=== PATIENT | male | born 1985 | race Caucasian/White ===

== ENCOUNTER 2019-06-17 02:22 | Inpatient (IN) | payer MEDICAID, OTHER ==
[~2019-06-17] VITALS: Ht 175.3 cm; Wt 70.6 kg
[~2019-06-17 02:22] MED LIST: QUETIAPINE FUMA25 MG ORAL; REMICADE10 MG IV
--- NOTE | 2019-06-17 02:40 | NUR ---
ED Nurse Note: patient ambulated to ed c/o 12/12 sharp upper abdominal pain x 1 night. denies nvd. patient reports history of crohns. ao4. vss. changed into gown; attached to monitor. all safety measures met.
--- NOTE | 2019-06-17 02:45 | NUR ---
ED Nurse Note: iv access established. blood and urine collected; sent down to lab.
[2019-06-17 03:00] VITALS: BP 124/81
[2019-06-17 03:00] LABS: APPEARANCE,URINE CLEAR; BILIRUBIN, URINE NEGATIVE (NEGATIVE); GLUCOSE, URINE (UA) NEGATIVE (NEGATIVE); KETONES,URINE 4+ (NEGATIVE); LEUKOCYTE ESTERASE ,URINE NEGATIVE (NEGATIVE); NITRITE,URINE NEGATIVE (NEGATIVE); PH,URINE 6 (4.5-8.0); PROTEIN,URINE 2+ (NEGATIVE); UROBILINOGEN,URINE 1 MG/DL (0.0-1.0)
[2019-06-17] MEDS ORDERED: Omnipaque-300 100ml vial INJ PRN (03:00)
[2019-06-17] MEDS ORDERED: Morphine Sulfate 4mg/ml Inj (IV USE ONLY) IVP ONE ×2 (03:00→05:15)
--- NOTE | 2019-06-17 03:01 | Emergency Room Report ---
History of Present Illness General Chief Complaint: Abdominal Pain Source: Patient Present Illness HPI 34-year-old male history of bipolar disorder, Crohn's disease presenting for abdominal pain. He states abdominal pain started last night diffuse nonradiating. Denies any nausea vomiting or diarrhea. Patient was previously on Remicade but has been off medication for about 2 years. His last exacerbation of his Crohn's disease was approximately 2 years ago. He also has a history of right-sided colectomy in 2010. It was completed at [facility]. He denies any fevers cough or shortness of breath. Allergies: Coded Allergies: No Known Allergies (Unverified , 01/15/15) COVID-19 Screening Contact w/high risk pt: No Recent Travel to affected area: No Experienced COVID-19 symptoms?: No Patient History Reviewed Nursing Documentation: PMH: Agreed; PSxH: Agreed Review of Systems All Other Systems: negative except mentioned in HPI Physical Exam Vital Signs Date Time Temp Pulse Resp B/P (MAP) Pulse Ox O2 Delivery O2 Flow Rate FiO2 06/17/19 02:32 98.2 95 20 124/81 (95) 92 Room Air Sp02 EP Interpretation: reviewed, normal General Appearance: well appearing, no apparent distress Head: normocephalic, atraumatic Eyes: bilateral eye PERRL, bilateral eye EOMI ENT: hearing grossly normal, moist mucus membranes Neck: full range of motion, supple Respiratory: lungs clear, normal breath sounds, no rhonchi, no respiratory distress, no retraction, no wheezing Cardiovascular #1: normal peripheral pulses, regular rate, rhythm, no murmur Gastrointestinal: soft, non-distended, no guarding, other - Diffuse abdominal tenderness noted Neurologic: alert, oriented x3, no focal defects Skin: normal color, warm/dry Medical Decision Making Diagnostic Impression: Primary Impression: Small bowel obstruction Additional Impression: Crohn's disease ER Course Differential diagnosis included but not limited to Crohn's flare, small bowel obstruction, gastroenteritis, gastritis, GERD, pancreatitis to name a few. On exam patient in no acute distress, nontoxic-appearing. Did have diffuse abdominal tenderness. Abdominal CT scan ordered. Laboratory studies ordered. Pain control given. CT scan of the abdomen pelvis did demonstrate evidence of small bowel obstruction. Patient had no active vomiting so NG tube was not placed. Surgery consulted, Dr. Soto. Patient admitted to the medical floor under the hospitalist service. Case accepted by Dr Wisdom. Patient was updated on his condition. Additional pain medications given in the ER. Laboratory Tests Test 06/17/19 02:52 White Blood Count 11.5 K/UL (4.8-10.8) H Red Blood Count 5.90 M/UL (4.70-6.10) Hemoglobin 17.0 G/DL (14.2-18.0) Hematocrit 48.4 % (42.0-52.0) Mean Corpuscular Volume 82 FL (80-99) Mean Corpuscular Hemoglobin 28.8 PG (27.0-31.0) Mean Corpuscular Hemoglobin Concent 35.1 G/DL (32.0-36.0) Red Cell Distribution Width 11.0 % (11.6-14.8) L Platelet Count 350 K/UL (150-450) Mean Platelet Volume 5.5 FL (6.5-10.1) L Neutrophils (%) (Auto) 81.7 % (45.0-75.0) H Lymphocytes (%) (Auto) 11.1 % (20.0-45.0) L Monocytes (%) (Auto) 6.5 % (1.0-10.0) Eosinophils (%) (Auto) 0.2 % (0.0-3.0) Basophils (%) (Auto) 0.5 % (0.0-2.0) Urine Color Pale yellow Urine Appearance Clear Urine pH 6 (4.5-8.0) Urine Specific [place] 1.025 (1.005-1.035) Urine Protein 2+ (NEGATIVE) H Urine Glucose (UA) Negative (NEGATIVE) Urine Ketones 4+ (NEGATIVE) H Urine Blood 1+ (NEGATIVE) H Urine Nitrite Negative (NEGATIVE) Urine Bilirubin Negative (NEGATIVE) Urine Urobilinogen 1 MG/DL (0.0-1.0) H Urine Leukocyte Esterase Negative (NEGATIVE) Urine RBC 0-2 /HPF (0 - 0) H Urine WBC 0 /HPF (0 - 0) Urine Squamous Epithelial Cells None /LPF (NONE/OCC) Urine Bacteria None /HPF (NONE) Sodium Level 141 MMOL/L (136-145) Potassium Level 4.1 MMOL/L (3.5-5.1) Chloride Level 103 MMOL/L (98-107) Carbon Dioxide Level 22 MMOL/L (21-32) Blood Urea Nitrogen 20 mg/dL (7-18) H Creatinine 1.2 MG/DL (0.55-1.30) Estimated Glomerular Filtration Rate > 60 mL/min (>60) Glucose Level 118 MG/DL (74-106) H Calcium Level 9.2 MG/DL (8.5-10.1) Total Bilirubin 0.8 MG/DL (0.2-1.0) Aspartate Amino Transferase (AST) 23 U/L (15-37) Alanine Aminotransferase (ALT) 40 U/L (12-78) Alkaline Phosphatase 115 U/L (46-116) Total Protein 8.1 G/DL (6.4-8.2) Albumin 4.8 G/DL (3.4-5.0) Globulin 3.3 g/dL Albumin/Globulin Ratio 1.5 (1.0-2.7) Lipase 140 U/L (73-393) CT/MRI/US Diagnostic Results CT/MRI/US Diagnostic Results : Imaging Test Ordered: CT scan abdomen and pelvis Impression MPRESSION: 1. Findings suggestive of small bowel obstruction with evidence of partial resection of the right colon. 2. Unremarkable abdominal viscera. Last Vital Signs Date Time Temp Pulse Resp B/P (MAP) Pulse Ox O2 Delivery O2 Flow Rate FiO2 06/17/19 02:32 98.2 95 20 124/81 (95) 92 Room Air Status: unchanged Disposition: ADMITTED INPATIENT Condition: Serious Referrals: NON PHYSICIAN (PCP) Kevon Snyder M.D. Jun 17, 2019 03:01
[2019-06-17 03:04] LABS: BASOPHILS % (AUTO) 0.5 % (0.0-2.0); COLOR,URINE PALE YELLOW; EOSINOPHILS % (AUTO) 0.2 % (0.0-3.0); HEMATOCRIT 48.4 % (42.0-52.0); LYMPHOCYTES % (AUTO) 11.1 % (20.0-45.0); MEAN CORPUSCULAR VOLUME 82 FL (80-99); MONOCYTES % (AUTO) 6.5 % (1.0-10.0); NEUTROPHILS % (AUTO) 81.7 % (45.0-75.0); PLATELET COUNT 350 K/UL (150-450); WHITE BLOOD COUNT 11.5 K/UL (4.8-10.8)
[2019-06-17 03:14] LABS: ALANINE AMINOTRANSFERASE 40 U/L (12-78); ALBUMIN 4.8 G/DL (3.4-5.0); ALBUMIN/GLOBULIN RATIO 1.5 (1.0-2.7); ALKALINE PHOSPHATASE 115 U/L (46-116); ASPARTATE AMINO TRANSFERASE 23 U/L (15-37); BILIRUBIN,TOTAL 0.8 MG/DL (0.2-1.0); BLOOD UREA NITROGEN 20 mg/dL (7-18); CALCIUM 9.2 MG/DL (8.5-10.1); CARBON DIOXIDE 22 MMOL/L (21-32); CHLORIDE 103 MMOL/L (98-107); CREATININE 1.2 MG/DL (0.55-1.30); POTASSIUM 4.1 MMOL/L (3.5-5.1); SODIUM 141 MMOL/L (136-145)
[2019-06-17 05:00] VITALS: BP 133/79
--- NOTE | 2019-06-17 05:00 | NUR ---
ED Nurse Note: mrsa swab collected; sent down to lab. patient refused vre cre swab.
--- NOTE | 2019-06-17 05:04 | Diagnostic Imaging Report ---
EXAM: CT Abdomen and Pelvis With Intravenous Contrast CLINICAL HISTORY: ABD PAIN TECHNIQUE: Axial computed tomography images of the abdomen and pelvis with intravenous contrast. CTDI is 3.9 mGy and DLP is 196.9 mGy-cm. One or more of the following dose reduction techniques were used: automated exposure control, adjustment of the mA and/or kV according to patient size, use of iterative reconstruction technique. COMPARISON: None. FINDINGS: Lung bases: Unremarkable. No mass. No consolidation. ABDOMEN: Liver: Unremarkable. No mass. Gallbladder and bile ducts: Unremarkable. No calcified stones. No ductal dilation. Pancreas: Unremarkable. No mass. No ductal dilation. Spleen: Unremarkable. No splenomegaly. Adrenals: Unremarkable. No mass. Kidneys and ureters: Unremarkable. No solid mass. No hydronephrosis. Stomach and bowel: The stomach is distended otherwise unremarkable. No hiatal hernia. Postoperative changes with suture along the ascending colon suggestive of partial right-sided colonic resection. Multiple loops of small bowel are dilated up to 4.1 cm with foamy debris in the distal aspect of the small bowel suggestive of small bowel obstruction. Zone of transition is indeterminate and likely at the level of the distal ileum or at the level of the suture site. The descending colon is decompressed. Mild fullness of the wall throughout the colon including the transverse portion and descending colon with minimal surrounding stranding does not exclude colitis. PELVIS: Appendix: No findings to suggest acute appendicitis. Bladder: Unremarkable. No mass. Reproductive: Unremarkable as visualized. ABDOMEN and PELVIS: Intraperitoneal space: Unremarkable. No free air. No significant fluid collection. Bones/joints: Mild degenerative disease of the spine. No acute fracture. No dislocation. Soft tissues: Unremarkable. Vasculature: Unremarkable. No abdominal aortic aneurysm. Lymph nodes: Unremarkable. No enlarged lymph nodes. IMPRESSION: 1. Findings suggestive of small bowel obstruction with evidence of partial resection of the right colon. 2. Unremarkable abdominal viscera.
[2019-06-17] MEDS ORDERED: Morphine Sulfate 4mg/ml Inj (IV USE ONLY) ONE (05:10)
--- NOTE | 2019-06-17 05:27 | NUR ---
Patient's aunt [phone]
--- NOTE | 2019-06-17 05:30 | NUR ---
TRANSFER TO FLOOR: Patient transferred to as ordered, per itz wagner. Report given to karine edmonds. patient stable for transport. patient transferred to unit via wheelchair with [employer]. pt sent with all belongings and admission packet. endorsed pt pain reassessment.
--- NOTE | 2019-06-17 05:35 | NUR ---
NURSE NOTES: Received, report from ER Nurse Chio will wait for pt arrival to the unit
--- NOTE | 2019-06-17 05:35 | NUR ---
NURSE NOTES: pt arrived to the unit via wheel chair escorted by ER staff. Pt transferred to bed with assist, pt is a/ox4, breaths regular unlabored at RA, c/o pain of 3/10 abd pain, pt has a Rt AC 18 G with no i.v fluids, skin otherwise intact with tattoos. oriented pt to the room, bed in low locked position, call light with in reach
--- NOTE | 2019-06-17 07:30 | NUR ---
NURSE NOTES: left message to MD for admission orders
--- NOTE | 2019-06-17 07:45 | NUR ---
HAND-OFF: Report given to qasim Degroot
[2019-06-17 08:20] VITALS: BP 121/72
[2019-06-17] MEDS: Piperacillin/Tazobactam 3.375 GM in NS 110 ML IVPB SCH ×2 (10:59→18:15)
[2019-06-17] MEDS: Morphine Sulfate 2mg/ml Inj(IV/IM USE ONLY) IVP PRN ×2 (11:08→17:01)
--- NOTE | 2019-06-17 11:32 | General Progress Note ---
Assessment/Plan Problem List: (1) Crohn's disease ICD Codes: K50.90 - Crohn's disease, unspecified, without complications SNOMED: 79571789 (2) Small bowel obstruction ICD Codes: K56.609 - Unspecified intestinal obstruction, unspecified as to partial versus complete obstruction SNOMED: 940157978 Assessment/Plan: h/o colon resection off meds for CD NPO IVF abx surg consult ESR/CRP KUB in am Subjective ROS Limited/Unobtainable: Yes Allergies: Coded Allergies: No Known Allergies (Unverified , 01/15/15) Objective Last 24 Hour Vital Signs Date Time Temp Pulse Resp B/P (MAP) Pulse Ox O2 Delivery O2 Flow Rate FiO2 06/17/19 08:20 98.3 87 18 121/72 (88) 96 06/17/19 06:39 Room Air 06/17/19 05:30 98.2 89 18 133/79 95 Room Air 06/17/19 05:00 98.2 89 18 133/79 95 Room Air 06/17/19 03:37 98.2 06/17/19 03:00 98.2 95 20 124/81 92 Room Air 06/17/19 03:00 95 20 Room Air 06/17/19 02:32 98.2 95 20 124/81 (95) 92 Room Air Laboratory Tests 06/17/19 02:52: White Blood Count 11.5H, Red Blood Count 5.90, Hemoglobin 17.0, Hematocrit 48.4 , Mean Corpuscular Volume 82, Mean Corpuscular Hemoglobin 28.8, Mean Corpuscular Hemoglobin Concent 35.1, Red Cell Distribution Width 11.0L, Platelet Count 350, Mean Platelet Volume 5.5L, Neutrophils (%) (Auto) 81.7H, Lymphocytes (%) (Auto) 11.1L, Monocytes (%) (Auto) 6.5, Eosinophils (%) (Auto) 0.2, Basophils (%) (Auto) 0.5, Urine Color Pale yellow, Urine Appearance Clear, Urine pH 6, Urine Specific [place] 1.025, Urine Protein 2+H, Urine Glucose (UA) Negative, Urine Ketones 4+H, Urine Blood 1+H, Urine Nitrite Negative, Urine Bilirubin Negative, Urine Urobilinogen 1H, Urine Leukocyte Esterase Negative, Urine RBC 0-2H, Urine WBC 0, Urine Squamous Epithelial Cells None, Urine Bacteria None, Sodium Level 141, Potassium Level 4.1, Chloride Level 103, Carbon Dioxide Level 22, Blood Urea Nitrogen 20H, Creatinine 1.2, Estimat Glomerular Filtration Rate > 60, Glucose Level 118H, Calcium Level 9.2, Total Bilirubin 0.8, Aspartate Amino Transf (AST/SGOT) 23, Alanine Aminotransferase ( ALT/SGPT) 40, Alkaline Phosphatase 115, Total Protein 8.1, Albumin 4.8, Globulin 3.3, Albumin/Globulin Ratio 1.5, Lipase 140 Height (Feet): 5 Height (Inches): 9.00 Weight (Pounds): 145 General Appearance: alert EENT: normal ENT inspection Neck: supple Cardiovascular: normal rate Respiratory/Chest: lungs clear Abdomen: hypoactive bowel sounds, distended Extremities: non-tender Enoc Marsh MD Jun 17, 2019 11:32
[2019-06-17 12:00] VITALS: BP 111/57
--- NOTE | 2019-06-17 13:47 | Consultation ---
History of Present Illness General Date patient seen: Jun 17, 2019 Reason for Hospitalization: Abdominal Pain Present Illness HPI 34-year-old male with history of bipolar disorder, Crohn's disease diagnosed in 2010 and presently untreated presented to [facility] for abdominal pain. He states abdominal pain started 1 day ago as diffuse nonradiating abd pain. Denies any nausea vomiting or diarrhea. Patient was previously on Remicade but has been off medication for about 2 years. His last exacerbation of his Crohn's disease was approximately 2 years ago. He also has a history of right-sided colectomy in 2010 at [facility]. He denies any fevers cough or shortness of breath. last flatus and BM yesterday. hungry. no pain currently. CT with Sbo on admission. surgery called to evaluate. Allergies: Coded Allergies: No Known Allergies (Unverified , 01/15/15) COVID-19 Screening Contact w/high risk pt: No Recent Travel to affected area: No Experienced COVID-19 symptoms?: No Medication History Scheduled Infliximab (Remicade), 0 IV ONCE, (Reported) Quetiapine Fumarate* (Seroquel*), 25 MG ORAL DAILY, (Reported) Patient History History Provided By: Patient, Medical Record, PMD Healthcare decision maker Resuscitation status Full Code Advanced Directive on File No Past Medical/Surgical History Past Medical/Surgical History: (1) Major depression (2) Drug overdose (3) Suicidal intent (4) Crohn's disease (5) Small bowel obstruction Review of Systems Review of Symptoms General ROS: no weight loss or fever Psychological ROS: no depression or mood changes, no memory loss Ophthalmic ROS: no visual changes or eye irritation ENT ROS: no nasal congestion, hearing loss, dizziness Allergy and Immunology ROS: no allergic symptoms or urticaria Hematological and Lymphatic ROS: no swollen glands, unusual bleeding or bruising Endocrine ROS: no polyuria, polydipsia, weight changes, temperature intolerance Respiratory ROS: no cough, shortness of breath, or wheezing Cardiovascular ROS: no chest pain or dyspnea on exertion Gastrointestinal ROS: abdominal pain, no bright red blood in stool. Musculoskeletal ROS: no myalgias or arthralgias Neurological ROS: no TIA or stroke symptoms Dermatological ROS: no new or changing skin lesions, rashes or pruritis Physical Exam Physical Exam General appearance: alert, cooperative, no distress, appears stated age Head: Normocephalic, without obvious abnormality, atraumatic Eyes: conjunctivae/corneas clear. PERRL, EOM's intact. Fundi benign Throat: Lips, mucosa, and tongue normal. Teeth and gums normal Neck: supple, symmetrical, trachea midline, no adenopathy, thyroid: not enlarged, symmetric, no tenderness/mass/nodules, no carotid bruit and no JVD Lungs: clear to auscultation bilaterally Heart: regular rate and rhythm, S1, S2 normal, no murmur, click, rub or gallop Abdomen: soft, non-tender. Bowel sounds decreased mild distention. No masses, no organomegaly Extremities: extremities normal, atraumatic, no cyanosis or edema Pulses: 2+ and symmetric Skin: Skin color, texture, turgor normal. No rashes or lesions Neurologic: Grossly normal Last 24 Hour Vital Signs Date Time Temp Pulse Resp B/P (MAP) Pulse Ox O2 Delivery O2 Flow Rate FiO2 06/17/19 08:20 98.3 87 18 121/72 (88) 96 06/17/19 06:39 Room Air 06/17/19 05:30 98.2 89 18 133/79 95 Room Air 06/17/19 05:00 98.2 89 18 133/79 95 Room Air 06/17/19 03:37 98.2 06/17/19 03:00 98.2 95 20 124/81 92 Room Air 06/17/19 03:00 95 20 Room Air 06/17/19 02:32 98.2 95 20 124/81 (95) 92 Room Air Laboratory Tests Test 06/17/19 02:52 White Blood Count 11.5 K/UL (4.8-10.8) H Red Blood Count 5.90 M/UL (4.70-6.10) Hemoglobin 17.0 G/DL (14.2-18.0) Hematocrit 48.4 % (42.0-52.0) Mean Corpuscular Volume 82 FL (80-99) Mean Corpuscular Hemoglobin 28.8 PG (27.0-31.0) Mean Corpuscular Hemoglobin Concent 35.1 G/DL (32.0-36.0) Red Cell Distribution Width 11.0 % (11.6-14.8) L Platelet Count 350 K/UL (150-450) Mean Platelet Volume 5.5 FL (6.5-10.1) L Neutrophils (%) (Auto) 81.7 % (45.0-75.0) H Lymphocytes (%) (Auto) 11.1 % (20.0-45.0) L Monocytes (%) (Auto) 6.5 % (1.0-10.0) Eosinophils (%) (Auto) 0.2 % (0.0-3.0) Basophils (%) (Auto) 0.5 % (0.0-2.0) Urine Color Pale yellow Urine Appearance Clear Urine pH 6 (4.5-8.0) Urine Specific [place] 1.025 (1.005-1.035) Urine Protein 2+ (NEGATIVE) H Urine Glucose (UA) Negative (NEGATIVE) Urine Ketones 4+ (NEGATIVE) H Urine Blood 1+ (NEGATIVE) H Urine Nitrite Negative (NEGATIVE) Urine Bilirubin Negative (NEGATIVE) Urine Urobilinogen 1 MG/DL (0.0-1.0) H Urine Leukocyte Esterase Negative (NEGATIVE) Urine RBC 0-2 /HPF (0 - 0) H Urine WBC 0 /HPF (0 - 0) Urine Squamous Epithelial Cells None /LPF (NONE/OCC) Urine Bacteria None /HPF (NONE) Sodium Level 141 MMOL/L (136-145) Potassium Level 4.1 MMOL/L (3.5-5.1) Chloride Level 103 MMOL/L (98-107) Carbon Dioxide Level 22 MMOL/L (21-32) Blood Urea Nitrogen 20 mg/dL (7-18) H Creatinine 1.2 MG/DL (0.55-1.30) Estimat Glomerular Filtration Rate > 60 mL/min (>60) Glucose Level 118 MG/DL (74-106) H Calcium Level 9.2 MG/DL (8.5-10.1) Total Bilirubin 0.8 MG/DL (0.2-1.0) Aspartate Amino Transf (AST/SGOT) 23 U/L (15-37) Alanine Aminotransferase (ALT/SGPT) 40 U/L (12-78) Alkaline Phosphatase 115 U/L (46-116) Total Protein 8.1 G/DL (6.4-8.2) Albumin 4.8 G/DL (3.4-5.0) Globulin 3.3 g/dL Albumin/Globulin Ratio 1.5 (1.0-2.7) Lipase 140 U/L (73-393) Height (Feet): 5 Height (Inches): 9.00 Weight (Pounds): 145 Medications Current Medications Medications (Trade) Dose Ordered Sig/Jim Route PRN Reason Start Time Stop Time Status Last Admin Dose Admin Iohexol (OMNIPAQUE-300 100ml) 100 ml NOW PRN INJ Radiology Procedure 06/17/19 03:00 06/19/19 02:52 Morphine Sulfate (Morphine Sulfate) 2 mg Q4H PRN IVP mod to severe pain 06/17/19 09:45 06/24/19 09:44 06/17/19 11:08 Ondansetron HCl (Zofran) 4 mg Q6H PRN IVP Nausea & Vomiting 06/17/19 09:45 07/17/19 09:44 Piperacillin Sod/ Tazobactam Sod 3.375 gm/Sodium Chloride 110 ml @ 27.5 mls/hr Q8H IVPB 06/17/19 11:00 06/24/19 10:59 06/17/19 10:59 Sodium Chloride 1,000 ml @ 125 mls/hr Q8H IV 06/17/19 10:00 07/17/19 09:59 06/17/19 10:14 Assessment/Plan Problem List: (1) Crohn's disease ICD Codes: K50.90 - Crohn's disease, unspecified, without complications SNOMED: 28499200 (2) Small bowel obstruction Assessment & Plan: Liver: Unremarkable. No mass. Gallbladder and bile ducts: Unremarkable. No calcified stones. No ductal dilation. Pancreas: Unremarkable. No mass. No ductal dilation. Spleen: Unremarkable. No splenomegaly. Adrenals: Unremarkable. No mass. Kidneys and ureters: Unremarkable. No solid mass. No hydronephrosis. Stomach and bowel: The stomach is distended otherwise unremarkable. No hiatal hernia. Postoperative changes with suture along the ascending colon suggestive of partial right-sided colonic resection. Multiple loops of small bowel are dilated up to 4.1 cm with foamy debris in the distal aspect of the small bowel suggestive of small bowel obstruction. Zone of transition is indeterminate and likely at the level of the distal ileum or at the level of the suture site. The descending colon is decompressed. Mild fullness of the wall throughout the colon including the transverse portion and descending colon with minimal surrounding stranding does not exclude colitis. PELVIS: Appendix: No findings to suggest acute appendicitis. Bladder: Unremarkable. No mass. Reproductive: Unremarkable as visualized. ABDOMEN and PELVIS: Intraperitoneal space: Unremarkable. No free air. No significant fluid collection. Bones/joints: Mild degenerative disease of the spine. No acute fracture. No dislocation. Soft tissues: Unremarkable. Vasculature: Unremarkable. No abdominal aortic aneurysm. Lymph nodes: Unremarkable. No enlarged lymph nodes. IMPRESSION: 1. Findings suggestive of small bowel obstruction with evidence of partial resection of the right colon. 2. Unremarkable abdominal viscera. improved since admission npo iv fluids am kub will follow clinically ICD Codes: K56.609 - Unspecified intestinal obstruction, unspecified as to partial versus complete obstruction SNOMED: 539252772 (3) Major depression ICD Codes: F32.9 - Major depressive disorder, single episode, unspecified SNOMED: 624335796 (4) Drug overdose ICD Codes: T50.901A - Poisoning by unspecified drugs, medicaments and biological substances, accidental (unintentional), initial encounter SNOMED: 52352173 (5) Suicidal intent ICD Codes: R45.851 - Suicidal ideations SNOMED: 333946283 aYn Soto Jun 17, 2019 13:47
[2019-06-17 16:00] VITALS: BP 122/68
[2019-06-17] MEDS ORDERED: Hydromorphone 0.5mg/0.5ml inj IM PRN (18:32)
[2019-06-17] MEDS: Hydromorphone 0.5mg/0.5ml inj IVP PRN ×2 (18:45→22:33)
--- NOTE | 2019-06-17 18:50 | NUR ---
NURSE NOTES: Called and received order from dr Soto for dilaudid 0.5mg iv Q4 PRN due to severe pain after morphine 2mg iv
--- NOTE | 2019-06-17 19:32 | NUR ---
NURSE NOTES: Report received from JONI Degroot. Patient is in stable condition.
--- NOTE | 2019-06-17 19:46 | NUR ---
HAND-OFF: Report given to JONI Turner.
[2019-06-17 20:00] VITALS: BP 120/77
--- NOTE | 2019-06-17 20:00 | NUR ---
NURSE NOTES: Patient complaining of 9/10 abdominal pain. Last dose of Dilaudid given at 1845. Patient says it helped "a little bit", denies discomfort, nausea and vomiting, but complains of discomfort and pain. Dr. Stoo aware. Will monitor pt's pain and medicate as needed.
--- NOTE | 2019-06-17 21:30 | NUR ---
NURSE NOTES: Explained to patient in regards to possible surgery tomorrow AM if pain unrelieved. Offered ice packs. Patient is getting upset.
--- NOTE | 2019-06-17 22:26 | Diagnostic Imaging Report ---
EXAM: XR Abdomen, 1 View CLINICAL HISTORY: ABD PAIN TECHNIQUE: Frontal supine view of the abdomen/pelvis. COMPARISON: No relevant prior studies available. FINDINGS: Mild to moderately gaseous distended small bowel loops centrally. Findings consistent with small bowel obstruction. Negative for pneumatosis.
--- NOTE | 2019-06-17 22:30 | NUR ---
NURSE NOTES: spoke with Dr. Soto for unrelieved abdominal pain. Ordered stat orders: BMP, CBC , Lactic acid and KUB.
[2019-06-17 22:57] LABS: BASOPHILS % (AUTO) 0.3 % (0.0-2.0); EOSINOPHILS % (AUTO) 0.2 % (0.0-3.0); HEMATOCRIT 46.3 % (42.0-52.0); HEMOGLOBIN 15.2 G/DL (14.2-18.0); LYMPHOCYTES % (AUTO) 8.6 % (20.0-45.0); MEAN CORPUSCULAR VOLUME 87 FL (80-99); MONOCYTES % (AUTO) 6.5 % (1.0-10.0); NEUTROPHILS % (AUTO) 84.5 % (45.0-75.0); PLATELET COUNT 317 K/UL (150-450); RED BLOOD COUNT 5.33 M/UL (4.70-6.10); RED CELL DISTRIBUTION WIDTH 12.7 % (11.6-14.8); WHITE BLOOD COUNT 12.7 K/UL (4.8-10.8)
[2019-06-17 23:08] LABS: ANION GAP 16 mmol/L (5-15); BLOOD UREA NITROGEN 16 mg/dL (7-18); CALCIUM 8.9 MG/DL (8.5-10.1); CARBON DIOXIDE 20 MMOL/L (21-32); CHLORIDE 106 MMOL/L (98-107); CREATININE 1.1 MG/DL (0.55-1.30); POTASSIUM 3.9 MMOL/L (3.5-5.1); SODIUM 142 MMOL/L (136-145)
[2019-06-18] VITALS: BP 121/85
--- NOTE | 2019-06-18 01:14 | History and Physical Report ---
DATE OF ADMISSION: 06/17/2019 REASON FOR REQUEST: Small bowel obstruction in the setting of Crohn disease. HISTORY OF PRESENT ILLNESS: This is a 34-year-old male. He has a history of Crohn disease diagnosed about 10 years ago, treated for some time with Remicade apparently and an oral pill. Patient did well for quite some time although he had an episode of bowel obstruction about 3 to 5 years ago that required a short hospital stay. Due to feeling well, he self-discontinued his medication therapy several years ago. He has fared well up until the last day or two. When he developed abdominal pain and shortness of breath. Patient has had a prior right-sided hemicolectomy at the time of his Crohn's diagnosis and it was done at [facility] in [place]. The patient has not had any nausea or vomiting, but has had abdominal discomfort and has been passing gas. PAST MEDICAL HISTORY: Notable for depression, history of drug overdose, history of suicide attempt, Crohn disease, right hemicolectomy. MEDICATIONS: Reviewed. ALLERGIES: None. SOCIAL HISTORY: Nonsmoker. Denies alcohol or substance abuse. FAMILY HISTORY: Noncontributory. REVIEW OF SYSTEMS: A 10-point review of systems performed. All systems negative other than noted above. PHYSICAL EXAMINATION: VITAL SIGNS: Blood pressure 121/72, heart rate 87, respirations 18, afebrile. HEENT: Conjunctivae pink. Oropharynx clear. NECK: Supple. LUNGS: Clear. CARDIAC: Regular. Normal S1, S2. No murmur. ABDOMEN: Soft, nontender. No guarding or rebound. EXTREMITIES: No edema. NEUROLOGIC: Nonfocal. LABORATORY DATA: White count 11.5, hemoglobin 17. Urinalysis with no active sediment and chemistry panel within normal limits. X-ray reveals partial small bowel obstruction. IMPRESSION: Partial small bowel obstruction in the setting of Crohn disease with prior right hemicolectomy. PLAN: 1. Bowel rest. 2. IV fluid hydration. 3. Analgesics. 4. GI and Surgical consultations. 5. Follow up imaging studies of the abdomen. 6. Empiric antimicrobials. Eduardo Wisdom M.D. : DAI JOB#: [id number] CC:
--- NOTE | 2019-06-18 01:39 | NUR ---
NURSE NOTES: Spoke with Dr. Wisdom regarding patient unrelieved abdominal pain of 11/12. called back and ordered to continue same medications.
[2019-06-18] MEDS: HYDROmorphone 1mg/ml Carpuject IVP PRN ×4 (02:34→20:11)
[2019-06-18] MEDS: Piperacillin/Tazobactam 3.375 GM in NS 110 ML IVPB SCH ×3 (02:34→18:19)
--- NOTE | 2019-06-18 03:30 | NUR ---
NURSE NOTES: Patient verbalizes no pain after giving new order of Dilaudid 1 mg IVP.
[2019-06-18 04:00] VITALS: BP 99/53
[2019-06-18 06:19] LABS: BASOPHILS % (AUTO) 0.4 % (0.0-2.0); EOSINOPHILS % (AUTO) 0.1 % (0.0-3.0); HEMATOCRIT 40.2 % (42.0-52.0); HEMOGLOBIN 14.1 G/DL (14.2-18.0); MEAN CORPUSCULAR VOLUME 83 FL (80-99); MONOCYTES % (AUTO) 13.2 % (1.0-10.0); NEUTROPHILS % (AUTO) 71.3 % (45.0-75.0); PLATELET COUNT 268 K/UL (150-450); RED BLOOD COUNT 4.82 M/UL (4.70-6.10); RED CELL DISTRIBUTION WIDTH 11.3 % (11.6-14.8); WHITE BLOOD COUNT 7.6 K/UL (4.8-10.8)
[2019-06-18 07:00] LABS: ALANINE AMINOTRANSFERASE 25 U/L (12-78); ALBUMIN 3.5 G/DL (3.4-5.0); ALBUMIN/GLOBULIN RATIO 1.3 (1.0-2.7); ALKALINE PHOSPHATASE 82 U/L (46-116); ANION GAP 14 mmol/L (5-15); ASPARTATE AMINO TRANSFERASE 17 U/L (15-37); BILIRUBIN,TOTAL 0.8 MG/DL (0.2-1.0); BLOOD UREA NITROGEN 15 mg/dL (7-18); CALCIUM 8.4 MG/DL (8.5-10.1); CARBON DIOXIDE 21 MMOL/L (21-32); CHLORIDE 108 MMOL/L (98-107); CREATININE 0.9 MG/DL (0.55-1.30); POTASSIUM 3.9 MMOL/L (3.5-5.1); SODIUM 143 MMOL/L (136-145)
--- NOTE | 2019-06-18 07:29 | NUR ---
HAND-OFF: Report given to JONI Irving. Patient is asleep and in stable condition .
--- NOTE | 2019-06-18 07:30 | NUR ---
NURSE NOTES: Patient is asleep. Stable. No visible signs of distress noted. All safety measures provided. Patient is in bed in locked and lowest position with call light within reach. Will continue to monitor.
--- NOTE | 2019-06-18 09:00 | General Progress Note ---
Assessment/Plan Problem List: (1) Crohn's disease ICD Codes: K50.90 - Crohn's disease, unspecified, without complications SNOMED: 88626425 (2) Small bowel obstruction ICD Codes: K56.609 - Unspecified intestinal obstruction, unspecified as to partial versus complete obstruction SNOMED: 471716683 Assessment/Plan: h/o colon resection off meds for CD NPO IVF abx surg consult, appreciated ESR/CRP KUB reviewed fu SBFT Subjective Allergies: Coded Allergies: No Known Allergies (Unverified , 01/15/15) Objective Last 24 Hour Vital Signs Date Time Temp Pulse Resp B/P (MAP) Pulse Ox O2 Delivery O2 Flow Rate FiO2 06/18/19 08:03 Room Air 06/18/19 04:00 98.7 16 99/53 (68) 95 06/18/19 00:00 98.1 90 16 121/85 (97) 98 06/17/19 23:03 98.1 06/17/19 21:00 Room Air 06/17/19 20:00 98.1 88 16 120/77 (91) 97 06/17/19 16:00 98.2 84 18 122/68 (86) 98 06/17/19 12:00 98.3 87 18 111/57 (75) 97 06/17/19 09:00 Room Air Intake and Output 06/17/19 06/18/19 19:00 07:00 Intake Total 125 ml 875 ml Output Total 1950 ml Balance 125 ml -1075 ml Intake IV Total 125 ml 875 ml Output Urine Total 1950 ml # Voids 6 Laboratory Tests 06/17/19 22:30: White Blood Count 12.7H, Red Blood Count 5.33, Hemoglobin 15.2, Hematocrit 46.3 , Mean Corpuscular Volume 87, Mean Corpuscular Hemoglobin 28.5, Mean Corpuscular Hemoglobin Concent 32.8, Red Cell Distribution Width 12.7, Platelet Count 317, Mean Platelet Volume 6.7, Neutrophils (%) (Auto) 84.5H, Lymphocytes ( %) (Auto) 8.6L, Monocytes (%) (Auto) 6.5, Eosinophils (%) (Auto) 0.2, Basophils (%) (Auto) 0.3, Sodium Level 142, Potassium Level 3.9, Chloride Level 106, Carbon Dioxide Level 20L, Anion Gap 16H, Blood Urea Nitrogen 16, Creatinine 1.1 , Estimat Glomerular Filtration Rate > 60, Glucose Level 102, Lactic Acid Level 0.80, Calcium Level 8.9 06/18/19 05:00: White Blood Count 7.6, Red Blood Count 4.82, Hemoglobin 14.1L, Hematocrit 40.2L , Mean Corpuscular Volume 83, Mean Corpuscular Hemoglobin 29.2, Mean Corpuscular Hemoglobin Concent 35.0, Red Cell Distribution Width 11.3L, Platelet Count 268, Mean Platelet Volume 5.6L, Neutrophils (%) (Auto) 71.3, Lymphocytes (%) (Auto) 15.0L, Monocytes (%) (Auto) 13.2H, Eosinophils (%) (Auto ) 0.1, Basophils (%) (Auto) 0.4, Sodium Level 143, Potassium Level 3.9, Chloride Level 108H, Carbon Dioxide Level 21, Anion Gap 14, Blood Urea Nitrogen 15, Creatinine 0.9, Estimat Glomerular Filtration Rate > 60, Glucose Level 91, Calcium Level 8.4L, Erythrocyte Sedimentation Rate [Pending], Magnesium Level 2.0, Total Bilirubin 0.8, Aspartate Amino Transf (AST/SGOT) 17, Alanine Aminotransferase (ALT/SGPT) 25, Alkaline Phosphatase 82, C-Reactive Protein, Quantitative 3.4H, Total Protein 6.2L, Albumin 3.5, Globulin 2.7, Albumin/ Globulin Ratio 1.3 Height (Feet): 5 Height (Inches): 9.00 Weight (Pounds): 155 General Appearance: alert EENT: normal ENT inspection Neck: supple Cardiovascular: normal rate Respiratory/Chest: decreased breath sounds Abdomen: normal bowel sounds, non tender, soft Extremities: non-tender Enoc Marsh MD Jun 18, 2019 09:00
--- NOTE | 2019-06-18 09:33 | NUR ---
CASE MANAGEMENT: INITIAL REVIEW 34YR OLD FROM HOME CC: ABDOMINAL PAIN 12/12 SI:SMALL BOWEL OBSTRUCTION PMH: CROHN'S DISEASE; RIGHT SIDED COLECTOMY 98.2 95 20 124/81 92% ON RA WBC 12.7 BUN 20 BG 118 ANION GAP 16 CO2-20 IS: IV MORPHINE SULFATE X2 CT ABD/PEL- SMALL BOWEL OBSTRUCTION WITH EVIDENCE OF PARTIAL RESECTION OF THE RIGHT COLON ABD [id number] consistent with small bowel obstruction. Negative for pneumatosis. \:3E MED SURG UNIT DCP: HOME WHEN STABLE PLAN: NPO IV ABX IV HYDRATE SURGERY CONSULT ERCP/CRP KUB CASE MANAGEMENT: REVIEW 06/18/19 SI:SMALL BOWEL OBSTRUCTION . CROHN'S DISEASE 98.7 90 16 121/85 98% ON RA CA+ 8.4 CREC PRO-3.4 IS: IV ZOSYN Q8HR IV NS @125ML/HR IV DILAUDID Q4HR/PRN IV ZOFRAN Q6HR/PRN \:3E MED SURG UNIT DCP: HOME WHEN STABLE PLAN: CONT NPO CONT IV ABX SURGERY CONSULT ERCP/CRP KUB THIS AM
--- NOTE | 2019-06-18 09:55 | Surgery Progress Note ---
Surgery Progress Note Subjective Additional Comments overnight was asking for pain meds and increased dosage despite minimal change in clinical afebrile HD stable labs improved kub noted this morning states feels much better no n/v/f/c no flatus or bm yet Objective Last 24 Hour Vital Signs Date Time Temp Pulse Resp B/P (MAP) Pulse Ox O2 Delivery O2 Flow Rate FiO2 06/18/19 08:03 Room Air 06/18/19 04:00 98.7 16 99/53 (68) 95 06/18/19 00:00 98.1 90 16 121/85 (97) 98 06/17/19 23:03 98.1 06/17/19 21:00 Room Air 06/17/19 20:00 98.1 88 16 120/77 (91) 97 06/17/19 16:00 98.2 84 18 122/68 (86) 98 06/17/19 12:00 98.3 87 18 111/57 (75) 97 I&O Intake and Output 06/17/19 06/18/19 19:00 07:00 Intake Total 125 ml 875 ml Output Total 1950 ml Balance 125 ml -1075 ml Intake IV Total 125 ml 875 ml Output Urine Total 1950 ml # Voids 6 Cardiovascular: RSR Respiratory: clear Abdomen: soft, distended - mild, non-tender, decreased bowel sounds Extremities: no edema, no tenderness, no cyanosis Laboratory Tests Test 06/17/19 22:30 06/18/19 05:00 White Blood Count 12.7 K/UL (4.8-10.8) H 7.6 K/UL (4.8-10.8) Red Blood Count 5.33 M/UL (4.70-6.10) 4.82 M/UL (4.70-6.10) Hemoglobin 15.2 G/DL (14.2-18.0) 14.1 G/DL (14.2-18.0) L Hematocrit 46.3 % (42.0-52.0) 40.2 % (42.0-52.0) L Mean Corpuscular Volume 87 FL (80-99) 83 FL (80-99) Mean Corpuscular Hemoglobin 28.5 PG (27.0-31.0) 29.2 PG (27.0-31.0) Mean Corpuscular Hemoglobin Concent 32.8 G/DL (32.0-36.0) 35.0 G/DL (32.0-36.0) Red Cell Distribution Width 12.7 % (11.6-14.8) 11.3 % (11.6-14.8) L Platelet Count 317 K/UL (150-450) 268 K/UL (150-450) Mean Platelet Volume 6.7 FL (6.5-10.1) 5.6 FL (6.5-10.1) L Neutrophils (%) (Auto) 84.5 % (45.0-75.0) H 71.3 % (45.0-75.0) Lymphocytes (%) (Auto) 8.6 % (20.0-45.0) L 15.0 % (20.0-45.0) L Monocytes (%) (Auto) 6.5 % (1.0-10.0) 13.2 % (1.0-10.0) H Eosinophils (%) (Auto) 0.2 % (0.0-3.0) 0.1 % (0.0-3.0) Basophils (%) (Auto) 0.3 % (0.0-2.0) 0.4 % (0.0-2.0) Sodium Level 142 MMOL/L (136-145) 143 MMOL/L (136-145) Potassium Level 3.9 MMOL/L (3.5-5.1) 3.9 MMOL/L (3.5-5.1) Chloride Level 106 MMOL/L (98-107) 108 MMOL/L (98-107) H Carbon Dioxide Level 20 MMOL/L (21-32) L 21 MMOL/L (21-32) Anion Gap 16 mmol/L (5-15) H 14 mmol/L (5-15) Blood Urea Nitrogen 16 mg/dL (7-18) 15 mg/dL (7-18) Creatinine 1.1 MG/DL (0.55-1.30) 0.9 MG/DL (0.55-1.30) Estimat Glomerular Filtration Rate > 60 mL/min (>60) > 60 mL/min (>60) Glucose Level 102 MG/DL (74-106) 91 MG/DL (74-106) Lactic Acid Level 0.80 mmol/L (0.4-2.0) Calcium Level 8.9 MG/DL (8.5-10.1) 8.4 MG/DL (8.5-10.1) L Erythrocyte Sedimentation Rate 6 MM/HR (0-15) Magnesium Level 2.0 MG/DL (1.8-2.4) Total Bilirubin 0.8 MG/DL (0.2-1.0) Aspartate Amino Transf (AST/SGOT) 17 U/L (15-37) Alanine Aminotransferase (ALT/SGPT) 25 U/L (12-78) Alkaline Phosphatase 82 U/L (46-116) C-Reactive Protein, Quantitative 3.4 mg/dL (0.00-0.90) H Total Protein 6.2 G/DL (6.4-8.2) L Albumin 3.5 G/DL (3.4-5.0) Globulin 2.7 g/dL Albumin/Globulin Ratio 1.3 (1.0-2.7) Plan Problems: (1) Crohn's disease (2) Small bowel obstruction Assessment & Plan: Liver: Unremarkable. No mass. Gallbladder and bile ducts: Unremarkable. No calcified stones. No ductal dilation. Pancreas: Unremarkable. No mass. No ductal dilation. Spleen: Unremarkable. No splenomegaly. Adrenals: Unremarkable. No mass. Kidneys and ureters: Unremarkable. No solid mass. No hydronephrosis. Stomach and bowel: The stomach is distended otherwise unremarkable. No hiatal hernia. Postoperative changes with suture along the ascending colon suggestive of partial right-sided colonic resection. Multiple loops of small bowel are dilated up to 4.1 cm with foamy debris in the distal aspect of the small bowel suggestive of small bowel obstruction. Zone of transition is indeterminate and likely at the level of the distal ileum or at the level of the suture site. The descending colon is decompressed. Mild fullness of the wall throughout the colon including the transverse portion and descending colon with minimal surrounding stranding does not exclude colitis. PELVIS: Appendix: No findings to suggest acute appendicitis. Bladder: Unremarkable. No mass. Reproductive: Unremarkable as visualized. ABDOMEN and PELVIS: Intraperitoneal space: Unremarkable. No free air. No significant fluid collection. Bones/joints: Mild degenerative disease of the spine. No acute fracture. No dislocation. Soft tissues: Unremarkable. Vasculature: Unremarkable. No abdominal aortic aneurysm. Lymph nodes: Unremarkable. No enlarged lymph nodes. IMPRESSION: 1. Findings suggestive of small bowel obstruction with evidence of partial resection of the right colon. 2. Unremarkable abdominal viscera. improved since admission npo iv fluids am kub will follow clinically small bowel series with Gastrografin ordered discussed with pcp and rn (3) Major depression (4) Drug overdose (5) Suicidal intent Yan Soto Jun 18, 2019 09:55
[2019-06-18 12:00] VITALS: BP 106/58
--- NOTE | 2019-06-18 15:17 | Diagnostic Imaging Report ---
Indication: Abdominal pain and distention. History of Crohn's disease Technique: Small bowel follow-through was performed. Patient was given 240 mL of Gastrografin and serial radiographic images were obtained of the abdomen. Comparison: CT of the abdomen and pelvis 06/17/2019 Findings: [employer] radiograph demonstrates some mildly dilated loops of small bowel in the central abdomen. There is surgical serial in the right lower quadrant consistent with prior anastomosis noted on concurrent CT images. There is no evidence of free intraperitoneal air. No acute osseous abnormality. Imaged lung bases are grossly clear. There is prompt transit of contrast through the small bowel following administration of water-soluble contrast. Some small bowel loops maintained a mildly dilated however there is no evidence to suggest complete small bowel obstruction. By 30 minutes there is contrast within the cecum. By 45 minutes contrast is noted within the hepatic flexure. By 60 minutes contrast has transited through the entire small bowel and has reached the rectum. IMPRESSION: No evidence of small bowel obstruction. Administered oral contrast seen to transit to the rectum.
[2019-06-18 16:00] VITALS: BP 123/65
--- NOTE | 2019-06-18 19:06 | NUR ---
NURSE NOTES: Received report from JONI Irving. Pt is awake, lying semi-barrera's; comfortably resting. No signs of acute distress noted. Pt denies any pain at this time. AOx4; able to make needs known. Checked IV site, line, and rate; patent and running. No erythema, bleeding, or infiltration noted. Bed at lowest position. Brakes on. Siderails up x2. Call light within reach. Will continue to monitor.
--- NOTE | 2019-06-18 19:06 | NUR ---
HAND-OFF: Report given to Kaci QUINONES. Patient is stable.
[2019-06-18 20:00] VITALS: BP 108/57
[2019-06-19] VITALS: BP 97/59
[2019-06-19] MEDS: HYDROmorphone 1mg/ml Carpuject IVP PRN (00:15)
[2019-06-19] MEDS ORDERED: HYDROmorphone 1mg/ml Carpuject IVP PRN (01:30)
[2019-06-19] MEDS: Piperacillin/Tazobactam 3.375 GM in NS 110 ML IVPB SCH ×2 (02:38→11:24)
--- NOTE | 2019-06-19 05:45 | Progress Note ---
DATE: 06/18/2019 INTERNAL MEDICINE PROGRESS NOTE SUBJECTIVE: The patient had a small bowel series today revealing no obstruction. The patient's pain has decreased. OBJECTIVE: VITALS SIGNS: Stable. Afebrile. ABDOMEN: Soft, and non-focally tender. Case was discussed with surgeon. IMPRESSION: Improved. PLAN: Initiate and advance diet. Decrease pain control regimen. Outpatient colonoscopy anticipated. Discharge planning if clinical course continued to improve. Eduardo Wisdom M.D. DR: ALYSSA JOB#: [id number] CC:
--- NOTE | 2019-06-19 07:29 | NUR ---
NURSE NOTES: Report given to JONI Irving. Pt is awake and in stable condition. Plan of care endorsed.
--- NOTE | 2019-06-19 07:30 | NUR ---
NURSE NOTES: Patient is in bed asleep. Breathing is even and unlabored. No visible signs of distress noted. Stable. Patient in bed in locked and lowest position with call light within reach. All safety measures provided. WIll continue to monitor.
[2019-06-19 08:00] VITALS: BP 105/67
--- NOTE | 2019-06-19 09:41 | NUR ---
CASE MANAGEMENT: REVIEW 06/19/19 SI:SMALL BOWEL OBSTRUCTION . CROHN'S DISEASE 98.6 78 18 105/67 98% ON RA IS: IV ZOSYN Q8HR IV NS @75ML/HR IV ZOFRAN Q6HR/PRN \:3E MED SURG UNIT DCP: HOME WHEN STABLE PLAN: START ON SOFT DIET CONT IV ABX XRAY Small Bowel w/Gastrografi-No evidence of small bowel obstruction PAIN MANAGEMENT
--- NOTE | 2019-06-19 09:57 | General Progress Note ---
Assessment/Plan Problem List: (1) Crohn's disease ICD Codes: K50.90 - Crohn's disease, unspecified, without complications SNOMED: 63237185 (2) Small bowel obstruction ICD Codes: K56.609 - Unspecified intestinal obstruction, unspecified as to partial versus complete obstruction SNOMED: 083385258 Assessment/Plan: h/o colon resection off meds for CD neg SBFT on Diet recommend dc and fu out patient for colonoscopy Subjective ROS Limited/Unobtainable: Yes Allergies: Coded Allergies: No Known Allergies (Unverified , 01/15/15) Objective Last 24 Hour Vital Signs Date Time Temp Pulse Resp B/P (MAP) Pulse Ox O2 Delivery O2 Flow Rate FiO2 06/19/19 09:00 Room Air 06/19/19 08:00 98.6 78 18 105/67 (80) 98 06/19/19 00:00 98.2 18 97/59 (72) 98 06/18/19 21:00 Room Air 06/18/19 20:00 98.0 18 108/57 (74) 97 06/18/19 16:00 98.5 18 123/65 (84) 96 06/18/19 12:00 98.3 16 106/58 (74) 96 Intake and Output 06/18/19 06/19/19 19:00 07:00 Intake Total 400 ml Balance 400 ml Intake Oral 400 ml Height (Feet): 5 Height (Inches): 9.00 Weight (Pounds): 155 General Appearance: alert EENT: normal ENT inspection Neck: supple Cardiovascular: normal rate Respiratory/Chest: decreased breath sounds Abdomen: soft, hypoactive bowel sounds Extremities: non-tender Enoc Marsh MD Jun 19, 2019 09:57
[2019-06-19 12:00] VITALS: BP 113/76
--- NOTE | 2019-06-19 12:07 | NUR ---
DISCHARGE PLANNED: PATIENT RETURNING TO [facility] [address] [place] [address] RN CALLING [employer] [facility]
--- NOTE | 2019-06-19 12:20 | NUR ---
SALES PERFORMANCE ANALYST NOTES SPOKE WITH IMMANUEL FREEDMAN [employer] OF [facility], HE IS RERQUESTING [T BE TESTED FOR COVID-19 PRIOR TO RETURNING TO THE FACILITY. INFORMED IMMANUEL PT DOES NOT MEET CRITERIA FOR COVID-19 TESTING. PT PRESENTED TO THE ER WITH ABDOMINAL PAIN. REFERRED IMMANUEL TO THE [facility] FOR COVID-19 TESTING PROTOCOL AND DISCHARGE PROTOCOL. OK FOR PT TO RETURN TO FACILITY AT THIS TIME. INFORMED IMMANUEL OF DRIVE THRU TESTING LOCATIONS. ALSO EMAILED [facility] PROTOCOL FOR DC. IMMANUEL REQUESTED PT RETURN TO HIS FACILITY AT 1300 ALSO REQUESTED PT'S TEMPERATURE BE TAKEN PRIOR TO DC. NURSE MADE AWARE. EMAIL [employer]EL[employer] IMMANUEL [phone]
--- NOTE | 2019-06-19 12:50 | NUR ---
NURSE NOTES: transportation arranged. Will continue with discharge
--- NOTE | 2019-06-19 13:00 | NUR ---
NURSE NOTES: RN checked patient's temperature, oral temp: 98.1, no fever, chills, or body aches noted. No respiratory distress noted. Stable.
--- NOTE | 2019-06-19 13:33 | NUR ---
NURSE NOTES: Patient discharged as ordered. Stable. Denies pain or SOB. Patient has all belongings. Thorough discharge instructions given to patient by RN. Patient verbalized understanding. Skin is c/d/i. IV removed. Patient given thorough written instructions. Public health information given to patient regarding covid protocols.
[2019-06-19] MEDS ORDERED: Tubing IV Secondary IV ONE (13:42)
[2019-06-19] MEDS ORDERED: D5NS 1000ml IV ONE (13:42)
--- NOTE | 2019-06-19 14:17 | Surgery Progress Note ---
Surgery Progress Note Subjective Additional Comments improved bm pain resolving d/c today discussed with pcp and patients living director Objective Last 24 Hour Vital Signs Date Time Temp Pulse Resp B/P (MAP) Pulse Ox O2 Delivery O2 Flow Rate FiO2 06/19/19 12:00 98.3 73 18 113/76 (88) 97 06/19/19 09:00 Room Air 06/19/19 08:00 98.6 78 18 105/67 (80) 98 06/19/19 00:00 98.2 18 97/59 (72) 98 06/18/19 21:00 Room Air 06/18/19 20:00 98.0 18 108/57 (74) 97 06/18/19 16:00 98.5 18 123/65 (84) 96 I&O Intake and Output 06/18/19 06/19/19 19:00 07:00 Intake Total 400 ml Balance 400 ml Intake Oral 400 ml Cardiovascular: RSR Respiratory: clear Abdomen: soft, flat, non-tender, present bowel sounds Extremities: no edema, no tenderness, no cyanosis Plan Problems: (1) Crohn's disease (2) Small bowel obstruction Assessment & Plan: Liver: Unremarkable. No mass. Gallbladder and bile ducts: Unremarkable. No calcified stones. No ductal dilation. Pancreas: Unremarkable. No mass. No ductal dilation. Spleen: Unremarkable. No splenomegaly. Adrenals: Unremarkable. No mass. Kidneys and ureters: Unremarkable. No solid mass. No hydronephrosis. Stomach and bowel: The stomach is distended otherwise unremarkable. No hiatal hernia. Postoperative changes with suture along the ascending colon suggestive of partial right-sided colonic resection. Multiple loops of small bowel are dilated up to 4.1 cm with foamy debris in the distal aspect of the small bowel suggestive of small bowel obstruction. Zone of transition is indeterminate and likely at the level of the distal ileum or at the level of the suture site. The descending colon is decompressed. Mild fullness of the wall throughout the colon including the transverse portion and descending colon with minimal surrounding stranding does not exclude colitis. PELVIS: Appendix: No findings to suggest acute appendicitis. Bladder: Unremarkable. No mass. Reproductive: Unremarkable as visualized. ABDOMEN and PELVIS: Intraperitoneal space: Unremarkable. No free air. No significant fluid collection. Bones/joints: Mild degenerative disease of the spine. No acute fracture. No dislocation. Soft tissues: Unremarkable. Vasculature: Unremarkable. No abdominal aortic aneurysm. Lymph nodes: Unremarkable. No enlarged lymph nodes. IMPRESSION: 1. Findings suggestive of small bowel obstruction with evidence of partial resection of the right colon. 2. Unremarkable abdominal viscera. improved since admission npo iv fluids am kub will follow clinically small bowel series with Gastrografin negative discussed with pcp and rn d/c diet as tolerated sober living please (3) Major depression (4) Drug overdose (5) Suicidal intent Yan Soto Jun 19, 2019 14:17
--- NOTE | 2019-06-21 16:25 | Discharge Summary ---
Discharge Summary Discharge Summary _ DATE OF ADMISSION: 06/17/2019 DATE OF DISCHARGE: 06/19/2019 DISCHARGED BY: Dr. Wisdom REASON FOR ADMISSION: 34 years old male with past medical history of Crohn's disease, status post right hemicolectomy, depression, history of drug overdose and suicide attempt, developed abdominal pain and shortness of breath for the last 2 days. He denied nausea and vomiting. He reported abdominal discomfort . Patient was diagnosed with Crohn's disease 10 years ago. Patient apparently was treated with Remicade prior, and then started on oral pill. Patient reported history of bowel obstruction 3 to 5 years ago , which required a short hospital stay. Patient self discontinued his medication several years ago after feeling better. He was doing well until the last few days, when he developed symptoms. Upon evaluation patient was afebrile. Laboratory work-up revealed mild leukocytosis WBC 11.5, hemoglobin 17. Urinalysis revealed no evidence of urinary tract infection, and chemistry was stable. CT scan of the abdomen and pelvis revealed small bowel obstruction with evidence of partial resection of the right colon. Patient admitted for further management. CONSULTANTS: GI specialist Dr. Marsh surgery Dr. Soto [facility] COURSE: Patient admitted to medical surgical floor. Patient was kept n.p.o. and started on IV hydration. Pain management was addressed. Patient started on empiric antibiotics. General surgeon and GI specialist followed. Abdominal x-ray demonstrated small bowel obstruction. No pneumatosis. Patient was followed-up with serial exams. Patient subsequently undergone small bowel follow-through with Gastrografin, which revealed no evidence of small bowel obstruction. Mild leukocytosis resolved. Patient remained afebrile. No need for surgical intervention. Patient started on diet and was able to tolerate it. Antiemetic were on board as needed. GI specialist recommended follow-up with colonoscopy as outpatient. Patient clinically stabilized and was ready for transfer to sober living facility. FINAL DIAGNOSES: Small bowel obstruction Crohn's disease History of prior right hemicolectomy Major depression Drug overdose Suicidal intent in the past DISCHARGE MEDICATIONS: See Medication Reconciliation list. DISCHARGE INSTRUCTIONS: Patient was discharged to a sober living facility. Follow-up with GI specialist as outpatient for colonoscopy was recommended. I have been assigned to dictate discharge summary for this account. I was not involved in the patient's management. Radha Overton NP Jun 21, 2019 16:25
== END 2019-06-19 13:43 | DRG 245 ==
LOC: EMR 02:37 → 3E 05:17 → EDBEDREQ 05:25
DX: K50.912 Crohn's disease, unspecified, with intestinal obstruction (principal); F32.9 Major depressive disorder, single episode, unspecified; Z90.49 Acquired absence of other specified parts of digestive tract; Z91.5 Personal history of self-harm
CPT/HCPCS: 36415; 74018; 74177; 74250; 80048; 80053; 81003; 83605; 83690; 83735; 85025; 85651; 86140; 87081; 96374; 96376; 99285; J2405; J7030

== ENCOUNTER 2019-07-17 17:55 | Emergency (ER) | payer MEDICAID, OTHER ==
[~2019-07-17] VITALS: Ht 175.3 cm; Wt 56.7 kg
[2019-07-17 18:25] VITALS: BP 127/81
[2019-07-17] MEDS ORDERED: Morphine Sulfate 4mg/ml Inj (IV USE ONLY) IVP ONE ×2 (18:30→21:00)
[2019-07-17] MEDS ORDERED: Omnipaque-300 100ml vial INJ PRN (18:30)
--- NOTE | 2019-07-17 18:37 | Emergency Room Report ---
History of Present Illness General Chief Complaint: Abdominal Pain Present Illness HPI 34 YO Male presents to the ED c/o 09/11 in severity lower diffuse constant abdominal pain x 1 day. Pt. reports normal BM this am, this afternoon he was constipated. Pt. denies ability to pass gas. He reports recent hospitalization last month for bowel obstruction. Pt. with Hx of Crohn's. He is not currently taking medications for Crohn's, and has not been since 2017. Pt. reports abdominal surgery for Crohn's in 2016. Pt. reports only taking psych meds: Seroquil & Wellbutrin. Pt. denies N/V/F/C or diarrhea. Denies blood in the stool or black tarry stools. Pt. reports only thing he ate today was 2 oranges at around noon. (Vanessa Chavez) Allergies: Coded Allergies: No Known Allergies (Unverified , 01/15/15) Patient History Past Medical History: see triage record Past Surgical History: none, other - GI surgery 2015 and June 2019 Pertinent Family History: none Reviewed Nursing Documentation: PMH: Agreed; PSxH: Agreed (Vanessa Chavez) Review of Systems All Other Systems: negative except mentioned in HPI (Vanessa Chavez) Physical Exam Vital Signs Date Time Temp Pulse Resp B/P (MAP) Pulse Ox O2 Delivery O2 Flow Rate FiO2 07/17/19 18:00 98.4 89 18 132/86 (101) 96 Room Air Sp02 EP Interpretation: reviewed, normal General Appearance: no apparent distress, alert, GCS 15, non-toxic Head: normocephalic, atraumatic Eyes: bilateral eye normal inspection, bilateral eye PERRL ENT: hearing grossly normal, normal voice Neck: full range of motion Respiratory: chest non-tender, lungs clear, normal breath sounds, speaking full sentences Cardiovascular #1: regular rate, rhythm Gastrointestinal: normal bowel sounds - decreased BS in all quadrants, soft, non-distended, tenderness - Generalized TTP. no localized ttp. No peritonitis Rectal: deferred Genitourinary: normal inspection Musculoskeletal: back normal, normal range of motion, gait/station normal, non- tender Neurologic: alert, motor strength/tone normal, oriented x3, sensory intact, responsive, speech normal Psychiatric: judgement/insight normal Skin: no rash, normal color (Vanessa Chavez) Medical Decision Making PA Attestation Dr. Melgar Is my supervising Physician whom patient management has been discussed with. (Vanessa Chavez) Diagnostic Impression: Primary Impression: Abdominal pain Qualified Codes: R10.84 - Generalized abdominal pain Additional Impression: SBO (small bowel obstruction) ER Course 34 YO Male presents to the ED c/o 09/11 in severity lower diffuse constant abdominal pain x 1 day. Pt. reports normal BM this am, this afternoon he was constipated. Pt. denies ability to pass gas. He reports recent hospitalization last month for bowel obstruction. Pt. with Hx of Crohn's. He is not currently taking medications for Crohn's, and has not been since 2017. Pt. reports abdominal surgery for Crohn's in 2016. Pt. reports only taking psych meds: Seroquil & Wellbutrin. Pt. denies N/V/F/C or diarrhea. Denies blood in the stool or black tarry stools. Pt. reports only thing he ate today was 2 oranges at around noon. Ddx considered but are not limited to Diverticulitis, acute appy, diarrhea,UC, PUD, GE, pancreatitis, gallstone, Crohn's exacerbation, bowel obstruction just to name a few Vital signs: are WNL, pt. is afebrile H&PE are most consistent with possible crohns exacerbation vs. SBO ORDERS: -CBC, CMP, lipase: WNL -UA: Pending - CT Abdomen and Pelvis w. IV contrast: Pending at time of sign out. ED INTERVENTIONS: -- 1000cc NS -20mg Pepcid IV -4mg Morphine DISPOSITION: PT. has labs and imaging pending at time of sign out to attending physician Labs Test 07/17/19 18:15 White Blood Count 10.7 K/UL (4.8-10.8) Red Blood Count 5.76 M/UL (4.70-6.10) Hemoglobin 16.0 G/DL (14.2-18.0) Hematocrit 50.5 % (42.0-52.0) Mean Corpuscular Volume 88 FL (80-99) Mean Corpuscular Hemoglobin 27.8 PG (27.0-31.0) Mean Corpuscular Hemoglobin Concent 31.6 G/DL (32.0-36.0) Red Cell Distribution Width 12.3 % (11.6-14.8) Platelet Count 314 K/UL (150-450) Mean Platelet Volume 6.4 FL (6.5-10.1) Neutrophils (%) (Auto) 68.2 % (45.0-75.0) Lymphocytes (%) (Auto) 18.0 % (20.0-45.0) Monocytes (%) (Auto) 9.0 % (1.0-10.0) Eosinophils (%) (Auto) 3.3 % (0.0-3.0) Basophils (%) (Auto) 1.4 % (0.0-2.0) Urine Color Yellow Urine Appearance Clear Urine pH 5 (4.5-8.0) Urine Specific [place] 1.020 (1.005-1.035) Urine Protein 1+ (NEGATIVE) Urine Glucose (UA) Negative (NEGATIVE) Urine Ketones 1+ (NEGATIVE) Urine Blood Negative (NEGATIVE) Urine Nitrite Negative (NEGATIVE) Urine Bilirubin Negative (NEGATIVE) Urine Urobilinogen Normal MG/DL (0.0-1.0) Urine Leukocyte Esterase 1+ (NEGATIVE) Sodium Level 143 MMOL/L (136-145) Potassium Level 3.9 MMOL/L (3.5-5.1) Chloride Level 104 MMOL/L (98-107) Carbon Dioxide Level 27 MMOL/L (21-32) Anion Gap 12 mmol/L (5-15) Blood Urea Nitrogen 15 mg/dL (7-18) Creatinine 1.1 MG/DL (0.55-1.30) Estimat Glomerular Filtration Rate > 60 mL/min (>60) Glucose Level 105 MG/DL (74-106) Calcium Level 9.6 MG/DL (8.5-10.1) Total Bilirubin 0.4 MG/DL (0.2-1.0) Aspartate Amino Transf (AST/SGOT) 21 U/L (15-37) Alanine Aminotransferase (ALT/SGPT) 29 U/L (12-78) Alkaline Phosphatase 104 U/L (46-116) Total Protein 7.7 G/DL (6.4-8.2) Albumin 4.4 G/DL (3.4-5.0) Globulin 3.3 g/dL Albumin/Globulin Ratio 1.3 (1.0-2.7) Lipase 142 U/L (73-393) (Vanessa Chavez) ER Course Patient signed out by RONAK Chavez. Patient was pending CT abdomen pelvis. Patient CT demonstrates small bowel obstruction with transition point at the area of anastomosis. I have spoken with who is from the patient's insurance and will be accepting the patient for transfer. They are looking for a medical surgical bed for this patient and will obtain surgical consult once the patient arrives. (Bria Melgar M.D.) CT/MRI/US Diagnostic Results CT/MRI/US Diagnostic Results : Imaging Test Ordered: CT Abdomen and Pelvis w. IV contrast Impression Pending at time of sign out. (Vanessa Chavez) Last Vital Signs Date Time Temp Pulse Resp B/P (MAP) Pulse Ox O2 Delivery O2 Flow Rate FiO2 07/17/19 18:00 98.4 89 18 132/86 (101) 96 Room Air (Vanessa Chavez) Signed Out To: Dr. Mcclain (Vanessa Chavez) Physician Consult: Dr. Godinez (Bria Melgar M.D.) Referrals: NON PHYSICIAN (PCP) Vanessa Chavez July 17, 2019 18:37 Bria Melgar M.D. July 17, 2019 21:10
[2019-07-17 18:43] LABS: APPEARANCE,URINE CLEAR; BILIRUBIN, URINE NEGATIVE (NEGATIVE); GLUCOSE, URINE (UA) NEGATIVE (NEGATIVE); KETONES,URINE 1+ (NEGATIVE); LEUKOCYTE ESTERASE ,URINE 1+ (NEGATIVE); NITRITE,URINE NEGATIVE (NEGATIVE); PH,URINE 5 (4.5-8.0); PROTEIN,URINE 1+ (NEGATIVE); UROBILINOGEN,URINE NORMAL MG/DL (0.0-1.0)
[2019-07-17 18:44] LABS: BASOPHILS % (AUTO) 1.4 % (0.0-2.0); EOSINOPHILS % (AUTO) 3.3 % (0.0-3.0); HEMATOCRIT 50.5 % (42.0-52.0); MEAN CORPUSCULAR VOLUME 88 FL (80-99); NEUTROPHILS % (AUTO) 68.2 % (45.0-75.0); PLATELET COUNT 314 K/UL (150-450); RED BLOOD COUNT 5.76 M/UL (4.70-6.10); RED CELL DISTRIBUTION WIDTH 12.3 % (11.6-14.8); WHITE BLOOD COUNT 10.7 K/UL (4.8-10.8)
[2019-07-17 18:45] LABS: COLOR,URINE YELLOW
[2019-07-17 18:48] LABS: ANION GAP 12 mmol/L (5-15); BLOOD UREA NITROGEN 15 mg/dL (7-18); CALCIUM 9.6 MG/DL (8.5-10.1); CARBON DIOXIDE 27 MMOL/L (21-32); CHLORIDE 104 MMOL/L (98-107); CREATININE 1.1 MG/DL (0.55-1.30); POTASSIUM 3.9 MMOL/L (3.5-5.1); SODIUM 143 MMOL/L (136-145)
[2019-07-17 18:52] LABS: ALANINE AMINOTRANSFERASE 29 U/L (12-78); ALBUMIN 4.4 G/DL (3.4-5.0); ALBUMIN/GLOBULIN RATIO 1.3 (1.0-2.7); ALKALINE PHOSPHATASE 104 U/L (46-116); ASPARTATE AMINO TRANSFERASE 21 U/L (15-37); BILIRUBIN,TOTAL 0.4 MG/DL (0.2-1.0)
--- NOTE | 2019-07-17 19:34 | Diagnostic Imaging Report ---
EXAM: CT Abdomen and Pelvis With Intravenous Contrast CLINICAL HISTORY: PAIN TECHNIQUE: Axial computed tomography images of the abdomen and pelvis with intravenous contrast. CTDI is 3.8 mGy and DLP is 190.4 mGy-cm. One or more of the following dose reduction techniques were used: automated exposure control, adjustment of the mA and/or kV according to patient size, use of iterative reconstruction technique. COMPARISON: CT abdomen pelvis 06/17/2019 FINDINGS: Lung bases: Unremarkable. No mass. No consolidation. ABDOMEN: Liver: Unremarkable. No mass. Gallbladder and bile ducts: Unremarkable. No calcified stones. No ductal dilation. Pancreas: Unremarkable. No mass. No ductal dilation. Spleen: Unremarkable. No splenomegaly. Adrenals: Unremarkable. No mass. Kidneys and ureters: Unremarkable. No solid mass. No hydronephrosis. Stomach and bowel: Small bowel obstruction with a transition point at the surgical anastomosis in the right lower quadrant (image 8-14). There is distention of the upstream small bowel up to 4 cm. No pneumatosis. PELVIS: Appendix: Status post appendectomy. Bladder: Unremarkable. No mass. Reproductive: Unremarkable as visualized. ABDOMEN and PELVIS: Intraperitoneal space: Unremarkable. No free air. No significant fluid collection. Bones/joints: No acute fracture. No dislocation. Soft tissues: Unremarkable. Vasculature: Unremarkable. No abdominal aortic aneurysm. Lymph nodes: Unremarkable. No enlarged lymph nodes. IMPRESSION: Small bowel obstruction with a transition point at the surgical anastomosis in the right lower quadrant (image 8-14).
[2019-07-17 21:30] VITALS: BP 120/84
[2019-07-17 22:15] VITALS: BP 121/79
== END 2019-07-17 22:15 | disposition short-term general hospital (02) ==
LOC: EMR 18:05
DX: K56.609 Unspecified intestinal obstruction, unspecified as to partial versus complete obstruction (principal); R10.84 Generalized abdominal pain
CPT/HCPCS: 36415; 74177; 80053; 81003; 83690; 85025; 96361; 96374; 96375; 96376; J2270; J7030; Q9967; S0028; Z7502; 99284

== ENCOUNTER 2020-01-29 07:02 | Emergency (ER) | payer OTHER ==
[~2020-01-29] VITALS: Ht 175.3 cm; Wt 63.5 kg
[2020-01-29] MEDS ORDERED: Ketorolac 30mg Inj IV ONE (07:30)
[2020-01-29] MEDS ORDERED: Omnipaque-300 100ml vial INJ PRN (07:30)
[2020-01-29] MEDS ORDERED: Morphine Sulfate 4mg/ml Inj (IV USE ONLY) IVP ONE ×3 (07:30→12:45)
[2020-01-29 07:32] VITALS: BP 128/79
[2020-01-29 08:00] LABS: BASOPHILS % (AUTO) 0.5 % (0.0-2.0); EOSINOPHILS % (AUTO) 1.3 % (0.0-3.0); LYMPHOCYTES % (AUTO) 12.8 % (20.0-45.0); MEAN CORPUSCULAR VOLUME 86 FL (80-99); MONOCYTES % (AUTO) 4.5 % (1.0-10.0); NEUTROPHILS % (AUTO) 80.9 % (45.0-75.0); PLATELET COUNT 296 K/UL (150-450); RED BLOOD COUNT 5.48 M/UL (4.70-6.10)
[2020-01-29 08:08] LABS: ANION GAP 7 mmol/L (5-15); BLOOD UREA NITROGEN 20 mg/dL (7-18); CALCIUM 8.7 MG/DL (8.5-10.1); CARBON DIOXIDE 26 MMOL/L (21-32); CHLORIDE 106 MMOL/L (98-107); CREATININE 0.9 MG/DL (0.55-1.30); POTASSIUM 3.9 MMOL/L (3.5-5.1); SODIUM 139 MMOL/L (136-145)
[2020-01-29 08:09] LABS: INR 1.1 (0.9-1.1)
[2020-01-29 08:29] LABS: ALANINE AMINOTRANSFERASE 22 U/L (12-78); ALBUMIN 4.2 G/DL (3.4-5.0); ALBUMIN/GLOBULIN RATIO 1.6 (1.0-2.7); ALKALINE PHOSPHATASE 61 U/L (46-116); ASPARTATE AMINO TRANSFERASE 15 U/L (15-37); BILIRUBIN,TOTAL 0.4 MG/DL (0.2-1.0)
--- NOTE | 2020-01-29 09:12 | Emergency Room Report ---
History of Present Illness General Chief Complaint: Abdominal Pain Source: Patient Present Illness HPI 34-year-old male presents with abdominal pain. Started last night. Dull, 10 out of 10, nonradiating. Notes nausea, denies vomiting. Denies any diarrhea. States he has had previous bowel obstructions. States he is having reduced flatus. No other aggravating relieving factors. 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 COVID-19 Screening: PUI COVID-19 COVID-19 Testing Source: Clinic Patient History Past Medical History: other - crohns Past Surgical History: none Pertinent Family History: none Social History: Denies: smoking, alcohol use, drug use Immunizations: UTD Reviewed Nursing Documentation: PMH: Agreed; PSxH: Agreed Nursing Documentation-PMH Hx Cardiac Problems: No Hx Cancer: No Hx Gastrointestinal Problems: Yes - CROHNS Hx Neurological Problems: No Review of Systems All Other Systems: negative except mentioned in HPI Physical Exam Vital Signs Date Time Temp Pulse Resp B/P (MAP) Pulse Ox O2 Delivery O2 Flow Rate FiO2 01/29/20 07:12 98.2 88 19 123/76 (92) 98 Room Air 01/29/20 07:32 98 Sp02 EP Interpretation: reviewed, normal General Appearance: no apparent distress, alert, GCS 15, non-toxic Head: normocephalic, atraumatic Eyes: bilateral eye normal inspection, bilateral eye PERRL ENT: hearing grossly normal, normal pharynx, no angioedema, normal voice Neck: full range of motion, supple/symm/no masses Respiratory: chest non-tender, lungs clear, normal breath sounds, speaking full sentences Cardiovascular #1: regular rate, rhythm, no edema Cardiovascular #2: 2+ carotid (R), 2+ carotid (L), 2+ radial (R), 2+ radial (L), 2+ dorsalis pedis (R), 2+ dorsalis pedis (L) Gastrointestinal: normal bowel sounds, soft, non-distended, no guarding, no rebound, tenderness Rectal: deferred Genitourinary: normal inspection, no CVA tenderness Musculoskeletal: back normal, normal range of motion, gait/station normal, non- tender Neurologic: alert, motor strength/tone normal, oriented x3, sensory intact, responsive, speech normal Psychiatric: judgement/insight normal, memory normal, mood/affect normal, no suicidal/homicidal ideation Reflexes: 3+ bicep (R), 3+ bicep (L), 3+ tricep (R), 3+ tricep (L), 3+ knee (R), 3+ knee (L) Skin: no rash Lymphatic: no adenopathy Medical Decision Making Diagnostic Impression: Primary Impression: Small bowel obstruction ER Course Hospital Course 34-year-old male presents with abdominal pain. 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 Patient will require admission additional pain meds required Because of insurance patient will be transferred I feel this is a highly complex case requiring extensive working including EKG/Rhythm strip, Xray/CT/US, Blood/urine lab work, repeat exams while in ED, and administration of strong opiates/narcotics for pain control, admission to hospital or close patient follow up. Diagnosis - small bowel obstruction Transferred in serious condition Laboratory Tests Test 01/29/20 07:43 White Blood Count 11.0 K/UL (4.8-10.8) H Red Blood Count 5.48 M/UL (4.70-6.10) Hemoglobin 16.0 G/DL (14.2-18.0) Hematocrit 47.0 % (42.0-52.0) Mean Corpuscular Volume 86 FL (80-99) Mean Corpuscular Hemoglobin 29.2 PG (27.0-31.0) Mean Corpuscular Hemoglobin Concent 34.0 G/DL (32.0-36.0) Red Cell Distribution Width 12.0 % (11.6-14.8) Platelet Count 296 K/UL (150-450) Mean Platelet Volume 6.4 FL (6.5-10.1) L Neutrophils (%) (Auto) 80.9 % (45.0-75.0) H Lymphocytes (%) (Auto) 12.8 % (20.0-45.0) L Monocytes (%) (Auto) 4.5 % (1.0-10.0) Eosinophils (%) (Auto) 1.3 % (0.0-3.0) Basophils (%) (Auto) 0.5 % (0.0-2.0) Prothrombin Time 12.0 SEC (9.30-11.50) H Prothromb Time International Ratio 1.1 (0.9-1.1) Activated Partial Thromboplast Time 24 SEC (23-33) Sodium Level 139 MMOL/L (136-145) Potassium Level 3.9 MMOL/L (3.5-5.1) Chloride Level 106 MMOL/L (98-107) Carbon Dioxide Level 26 MMOL/L (21-32) Anion Gap 7 mmol/L (5-15) Blood Urea Nitrogen 20 mg/dL (7-18) H Creatinine 0.9 MG/DL (0.55-1.30) Estimat Glomerular Filtration Rate > 60 mL/min (>60) Glucose Level 105 MG/DL (74-106) Calcium Level 8.7 MG/DL (8.5-10.1) Total Bilirubin 0.4 MG/DL (0.2-1.0) Aspartate Amino Transf (AST/SGOT) 15 U/L (15-37) Alanine Aminotransferase (ALT/SGPT) 22 U/L (12-78) Alkaline Phosphatase 61 U/L (46-116) Total Protein 6.8 G/DL (6.4-8.2) Albumin 4.2 G/DL (3.4-5.0) Globulin 2.6 g/dL Albumin/Globulin Ratio 1.6 (1.0-2.7) Lipase 210 U/L (73-393) Last Vital Signs Date Time Temp Pulse Resp B/P (MAP) Pulse Ox O2 Delivery O2 Flow Rate FiO2 01/29/20 07:32 85 18 Room Air 98 01/29/20 07:32 98.2 128/79 98 Status: improved Disposition: SHORT-TERM HOSP Condition: Serious Scripts No Active Prescriptions or Reported Meds Referrals: [facility],REFERRING (PCP) Duncan Marie MD Jan 29, 2020 09:12
--- NOTE | 2020-01-29 09:14 | Diagnostic Imaging Report ---
EXAM: CT Abdomen and Pelvis With Intravenous Contrast CLINICAL HISTORY: ABD PAIN TECHNIQUE: Axial computed tomography images of the abdomen and pelvis with intravenous contrast. CTDI is 3.50 mGy and DLP is 185.20 mGy-cm. One or more of the following dose reduction techniques were used: automated exposure control, adjustment of the mA and/or kV according to patient size, use of iterative reconstruction technique. COMPARISON: No relevant prior studies available. FINDINGS: Lung bases: Unremarkable. No mass. No consolidation. ABDOMEN: Liver: Unremarkable. No mass. Gallbladder and bile ducts: Unremarkable. No calcified stones. No ductal dilation. Pancreas: Unremarkable. No mass. No ductal dilation. Spleen: Unremarkable. No splenomegaly. Adrenals: Unremarkable. No mass. Kidneys and ureters: Unremarkable. No solid mass. No hydronephrosis. Stomach and bowel: Small bowel obstruction, consisting of dilated small bowel measuring up to 3.6 cm with transition point located at the anastomotic suture line within the right lower quadrant, adjacent to the cecum. Associated, severe fecalization of the obstructed small bowel. No perforation. Mild perienteric fluid, which is secondary to the high- grade obstruction. Surgical consultation recommended. Large volume stool in the rectum measuring 7.2 cm mid-lateral, correlate for fecal impaction. Associated moderate stool in the sigmoid colon, correlate for constipation. No mucosal thickening. PELVIS: Appendix: No findings to suggest acute appendicitis. Bladder: Unremarkable. No mass. Reproductive: Unremarkable as visualized. ABDOMEN and PELVIS: Intraperitoneal space: Unremarkable. No free air. No significant fluid collection. Bones/joints: No acute fracture. No dislocation. Soft tissues: Unremarkable. Vasculature: Unremarkable. No abdominal aortic aneurysm. Lymph nodes: Unremarkable. No enlarged lymph nodes. IMPRESSION: 1. Small bowel obstruction, consisting of dilated small bowel measuring up to 3.6 cm with transition point located at the anastomotic suture line within the right lower quadrant, adjacent to the cecum. Associated, severe fecalization of the obstructed small bowel. No perforation. Mild perienteric fluid, which is secondary to the high-grade obstruction. Surgical consultation recommended. 2. Large volume stool in the rectum measuring 7.2 cm mid-lateral, correlate for fecal impaction. Associated moderate stool in the sigmoid colon, correlate for constipation.
[2020-01-29 10:10] VITALS: BP 125/57
[2020-01-29 12:13] VITALS: BP 132/59
[2020-01-29 12:40] VITALS: BP 137/67
== END 2020-01-29 12:45 | disposition short-term general hospital (02) ==
LOC: EMR 07:40
DX: K56.699 Other intestinal obstruction unspecified as to partial versus complete obstruction (principal); K50.90 Crohn's disease, unspecified, without complications
CPT/HCPCS: 36415; 74177; 80053; 83690; 85025; 85610; 85730; 86850; 86900; 86901; 96361; 96374; 96375; 96376; J1885; J2270; J2405; J7030; Q9965; S0028; Z7502; 99284